=== PATIENT | female | born 1995 | race Hispanic/Latino ===

== ENCOUNTER 2022-06-30 13:11 | Emergency (ER) | payer OTHER ==
[~2022-06-30] VITALS: Ht 147.3 cm; Wt 65.8 kg
[~2022-06-30 13:11] MED LIST: HYDROCODON-ACE1 EA10 PO; NORCO 5-325 TA1 EACH PO; PERCOCET 7.5-31 EACH PO; QVAR7.3 G1 INH; VENTOLIN HFA18 GM INH; ZOFRAN ODT4 MG PO
[2022-06-30] MEDS ORDERED: IRON325 M1 PO (13:54)
[2022-06-30] MEDS ORDERED: LOSARTAN POTASS50 MG PO (13:54)
== END 2022-06-30 15:01 | disposition home or self-care (01) ==
LOC: ED 13:11
DX: O20.9 Hemorrhage in early pregnancy, unspecified (principal); Z3A.01 Less than 8 weeks gestation of pregnancy; O99.011 Anemia complicating pregnancy, first trimester; O99.511 Diseases of the respiratory system complicating pregnancy, first trimester; J45.909 Unspecified asthma, uncomplicated; O10.911 Unspecified pre-existing hypertension complicating pregnancy, first trimester; Z88.0 Allergy status to penicillin; Z79.899 Other long term (current) drug therapy
CPT/HCPCS: 36415; 80053; 81001; 84702; 85025; 85060; 86900; 86901; 99284